=== PATIENT | male | born 1930 | race Caucasian/White ===

== ENCOUNTER 2017-09-09 17:26 | Emergency (ER) | payer MEDICARE ==
[~2017-09-09] VITALS: Ht 167.6 cm; Wt 68.0 kg
[~2017-09-09 17:26] MED LIST: AMIO200; ASCO500; ASPI81EC; ASPI81EC PO; ATEN25; ATEN25 PO; ATOR10; BETAINE HCL; CEFU250; CHOL10002 PO; CIPR500 PO; COQ; COQ 10; DOCU100; FISH1000 PO; HYOS.125 SL; IBUP400 PO; IRON; IRON 325 MG; LATA.005SO; LEVSOD75; LEVSOD75 PO; LOVA20 PO; METO25 PO; METO50ER; MULTI ENZYME; MULVIT; MULVITMIND PO; OMEP20ER PO; OMEP40CA12 PO; PAPAYA ENZYME; PRED10; PROM25S; TYLENOL; UBID10 PO; VISION ESSENTIALS; [UNRECOGNIZED DRUG - CODE]; [UNRECOGNIZED DRUG - OTHER]
[2017-09-09 17:51] LABS: BASOPHILS ABSOLUTE AUTO 0.04 K/mm3 (0.00-0.23); BASOPHILS PERCENT AUTO 0 % (0-2); EOSINOPHILS ABSOLUTE AUTO 0.07 K/mm3 (0.00-0.68); EOSINOPHILS PERCENT AUTO 0 % (0-6); Hematocrit 44.9 % (37.0-53.0); Hemoglobin 14.6 g/dL (13.5-17.5); IMMATURE GRAN ABSOLUTE AUTO 0.06 K/mm3 (0.00-0.10); IMMATURE GRAN PERCENT AUTO 0 % (0-1); LYMPHOCYTES ABSOLUTE AUTO 0.57 K/mm3 (0.84-5.20); LYMPHOCYTES PERCENT AUTO 4 % (21-46); MONOCYTES PERCENT AUTO 9 % (4-13); Mean Corpuscular HGB 33.1 pg (26.0-34.0); Mean Corpuscular HGB Conc 32.5 g/dL (31.5-36.5); Mean Corpuscular Volume 102 fL (80-100); Mean Platelet Volume 9.7 fL (9.1-12.4); NEUTROPHILS ABSOLUTE AUTO 13.84 K/mm3 (1.96-9.15); NEUTROPHILS PERCENT AUTO 86 % (41-73); Platelet Count 176 K/mm3 (150-400); RDW Coefficient Variation 13.1 % (11.7-14.2); RDW Standard Deviation 49.8 fL (35.1-46.3); Red Blood Cell Count 4.41 M/mm3 (4.30-5.90); White Blood Cell Count 16.08 K/mm3 (4.00-11.30)
[2017-09-09 18:05] LABS: Albumin, Blood 3.8 g/dL (3.4-5.0); Albumin/Globulin Ratio 1.1 (0.8-1.8); Bilirubin, Total 0.9 mg/dL (0.1-1.0); Bun/Creatinine Ratio 21.8 (12.0-20.0); Calcium, Blood 9.3 mg/dL (8.5-10.1); Creatinine, Blood 1.97 mg/dL (0.60-1.20); Globulin, Blood 3.6 g/dL (2.2-4.0); Potassium, Blood 5.3 mmol/L (3.5-5.5); Total Protein, Blood 7.4 g/dL (6.4-8.2)
[2017-09-09 18:15] LABS: Calcium, Ionized (POC) 1.16 mmol/L (1.10-1.46); Chloride (POC) 106 mmol/L (98-108); Glucose (ISTAT POC) 129 mg/dL (70-99); Hemoglobin (POC) 14.6 g/dL (13.5-17.5); Potassium (POC) 5.2 mmol/L (3.5-5.5); Sodium (POC) 141 mmol/L (135-148); Total CO2 (POC) 24 mmol/L (21-32)
[2017-09-09] MEDS ORDERED: ASPI81CH (19:40)
[2017-09-09] MEDS ORDERED: ALLO100 (19:40)
[2017-09-09] MEDS ORDERED: Curcumin1 GM (19:57)
[2017-09-09] MEDS ORDERED: BLUEBERRY FLAVOR1 ML (19:58)
[2017-09-09] MEDS ORDERED: Flax Oil1000 MG (19:58)
[2017-09-09] MEDS ORDERED: Tart Cherry Ca1 EACH (19:58)
[2017-09-09] MEDS ORDERED: BILBERRY80 MG (19:59)
[2017-09-09] MEDS ORDERED: PROBIOTIC1 EAC3 (19:59)
[2017-09-09] MEDS ORDERED: B Complex #11 EACH (19:59)
[2017-09-09] MEDS ORDERED: CYAN500 (19:59)
[2017-09-09] MEDS ORDERED: CHOL10002 (19:59)
[2017-09-09] MEDS ORDERED: RESVERATROL1 GM (19:59)
[2017-09-09 20:09] LABS: Source, Urine Clean Catch
[2017-09-09 20:10] LABS: Calcium, Ionized (POC) 1.15 mmol/L (1.10-1.46); Chloride (POC) 106 mmol/L (98-108); Creatinine (POC) 1.9 mg/dL (0.8-1.3); Glucose (ISTAT POC) 113 mg/dL (70-99); Hemoglobin (POC) 13.3 g/dL (13.5-17.5); Potassium (POC) 5.4 mmol/L (3.5-5.5); Sodium (POC) 141 mmol/L (135-148); Total CO2 (POC) 26 mmol/L (21-32)
[2017-09-09 20:12] LABS: Bilirubin, Urine Neg (Neg); Blood, Urine 1+ (Neg); Glucose Qualitative, Urine Neg (Neg); Ketones, Urine 1+ (Neg); Leukocyte Esterase, Urine 1+ (Neg); Nitrite, Urine Neg (Neg); Protein, Urine 2+ (Neg); Urobilinogen, Urine 1+ (Normal)
[2017-09-09] MEDS ORDERED: Zofran Odt4 MG PO (20:12)
[2017-09-09 20:17] LABS: Appearance, Urine Cloudy (Clear); Color, Urine Yellow (P-Yellow)
[2017-09-09 20:19] LABS: Amorphous Light (0-Heavy); Bacteria Few /hpf; Squamous Epithelial Cells Not Seen /hpf (Few)
== END 2017-09-10 20:28 | disposition home or self-care (01) ==
LOC: ER 17:26
PROVIDERS: Emergency Medicine
DX: K52.9 Noninfective gastroenteritis and colitis, unspecified (principal); E03.9 Hypothyroidism, unspecified; K21.9 Gastro-esophageal reflux disease without esophagitis; Z88.0 Allergy status to penicillin; Z88.8 Allergy status to other drugs, medicaments and biological substances; Z79.899 Other long term (current) drug therapy
CPT/HCPCS: 51701; 80047; 80053; 81001; 83690; 85014; 85025; 87086; 96361; 96374; 99283; J2405

== ENCOUNTER 2017-10-25 22:22 | Inpatient (IN) | payer MEDICARE ==
[~2017-10-25] VITALS: Ht 165.1 cm; Wt 72.9 kg
[~2017-10-25 22:22] MED LIST changes: +ALLO100 PO; +ASPI81CH PO; +B Complex #11 EACH; +BILBERRY80 MG; +BLUEBERRY FLAVOR1 ML; -COQ 10; +COQ 10 PO; +CYAN500 PO; +Curcumin1 GM; +Flax Oil1000 MG PO; +PROBIOTIC1 EAC3 PO; +RESVERATROL1 GM; +Tart Cherry Ca1 EACH PO; +Zofran Odt4 MG PO
[2017-10-25 23:14] LABS: BASOPHILS ABSOLUTE AUTO 0.05 K/mm3 (0.00-0.23); BASOPHILS PERCENT AUTO 1 % (0-2); EOSINOPHILS ABSOLUTE AUTO 0.27 K/mm3 (0.00-0.68); EOSINOPHILS PERCENT AUTO 4 % (0-6); Hematocrit 38.4 % (37.0-53.0); Hemoglobin 12.7 g/dL (13.5-17.5); IMMATURE GRAN ABSOLUTE AUTO 0.03 K/mm3 (0.00-0.10); IMMATURE GRAN PERCENT AUTO 0 % (0-1); LYMPHOCYTES ABSOLUTE AUTO 2.01 K/mm3 (0.84-5.20); LYMPHOCYTES PERCENT AUTO 29 % (21-46); MONOCYTES ABSOLUTE AUTO 1.04 K/mm3 (0.16-1.47); MONOCYTES PERCENT AUTO 15 % (4-13); Mean Corpuscular HGB 33.4 pg (26.0-34.0); Mean Corpuscular HGB Conc 33.1 g/dL (31.5-36.5); Mean Corpuscular Volume 101 fL (80-100); Mean Platelet Volume 9.6 fL (9.1-12.4); NEUTROPHILS PERCENT AUTO 51 % (41-73); Platelet Count 170 K/mm3 (150-400); RDW Coefficient Variation 12.9 % (11.7-14.2); RDW Standard Deviation 47.9 fL (35.1-46.3)
[2017-10-25 23:36] LABS: Alanine Aminotransfer (ALT/SGP 24 U/L (12-78); Albumin, Blood 3.2 g/dL (3.4-5.0); Albumin/Globulin Ratio 0.9 (0.8-1.8); Alk Phos 66 U/L (50-136); Anion Gap 8 mmol/L (6-16); Aspartate Aminotrans (AST/SGOT 23 U/L (12-37); Bilirubin, Total 0.4 mg/dL (0.1-1.0); Blood Urea Nitrogen 32 mg/dL (8-24); Bun/Creatinine Ratio 20.9 (12.0-20.0); CO2, Blood 27 mmol/L (21-32); Chloride, Blood 107 mmol/L (98-108); Creatinine, Blood 1.53 mg/dL (0.60-1.20); Globulin, Blood 3.7 g/dL (2.2-4.0); Glomerular Filtration Rate 46 (60-); Glucose, Blood 93 mg/dL (70-99); Potassium, Blood 4.3 mmol/L (3.5-5.5); Sodium, Blood 142 mmol/L (136-145); Total Protein, Blood 6.9 g/dL (6.4-8.2); Troponin I <0.015 ng/mL (0.000-0.040)
[2017-10-25 23:48] LABS: Magnesium, Blood 2.4 mg/dL (1.6-2.4)
[2017-10-26 00:34] LABS: Free Thyroxine 1.08 ng/dL (0.70-1.60)
[2017-10-26 00:35] LABS: D-Dimer, Quantitative 0.67 mg/L FEU (0.00-0.52)
[2017-10-26] MEDS ORDERED: LOVA40 PO (08:46)
[2017-10-27 05:04] LABS: Bun/Creatinine Ratio 22.6 (12.0-20.0); Calcium, Blood 8.3 mg/dL (8.5-10.1); Creatinine, Blood 1.46 mg/dL (0.60-1.20); Potassium, Blood 4.6 mmol/L (3.5-5.5)
[2017-10-28 05:47] LABS: Calcium, Blood 8.5 mg/dL (8.5-10.1); Creatinine, Blood 1.46 mg/dL (0.60-1.20); Potassium, Blood 4.2 mmol/L (3.5-5.5)
[2017-10-30] MEDS ORDERED: METO25ER PO (11:42)
[2017-10-30] MEDS ORDERED: TORSE20 PO (11:43)
[2017-10-30] MEDS ORDERED: XARELTO15 MG PO (11:43)
== END 2017-10-30 12:20 | disposition home or self-care (01) | DRG 310 ==
LOC: ER 22:22 → ERHOLD 22:23 → MEDS 22:23 → ICUW 10-26 07:02 → MEDS 10-26 08:05 → ICUW 10-28 13:21
PROVIDERS: Emergency Medicine; Student in an Organized Health Care Education/Training Program
PROC: B24BZZ4 Ultrasonography of Heart with Aorta, Transesophageal (ICD-10-PCS; 2017-10-27)
PROC: 5A2204Z Restoration of Cardiac Rhythm, Single (ICD-10-PCS; principal; 2017-10-29)
DX: I48.92 Unspecified atrial flutter (principal); I45.2 Bifascicular block; I25.10 Atherosclerotic heart disease of native coronary artery without angina pectoris; Z95.1 Presence of aortocoronary bypass graft; E78.5 Hyperlipidemia, unspecified; E03.9 Hypothyroidism, unspecified; H40.9 Unspecified glaucoma; Z87.891 Personal history of nicotine dependence; Z79.82 Long term (current) use of aspirin; Z79.899 Other long term (current) drug therapy; I95.89 Other hypotension; I34.0 Nonrheumatic mitral (valve) insufficiency; I48.0 Paroxysmal atrial fibrillation; N18.3 Chronic kidney disease, stage 3 (moderate); I44.0 Atrioventricular block, first degree
CPT/HCPCS: 36415; 71046; 71275; 80048; 80053; 83735; 83880; 84439; 84443; 84481; 84484; 85025; 85379; 92960; 93005; 93010; 93306; 93312; 93325; 96361; 96372; 96374; 96376; 99285; G0378; J1650; J2250; J2310; J3010; J7030; Q9967

== ENCOUNTER 2018-05-09 02:39 | Observation (INO) | payer MEDICARE ==
[~2018-05-09] VITALS: Ht 165.1 cm; Wt 68.0 kg
[~2018-05-09 02:39] MED LIST changes: +ELIQUIS2.5 MG PO; +HYDHCL25 PO; +KRILL OIL500 MG PO; +LORATADINE PO; +LOVA40 PO; +MAGOXI400 PO; +METO25ER PO; +OMEGA 3 500 SO1 EACH PO; +TORSE20 PO; +TRIA15CR3 TOP; +UBID100 PO; +VITAMIN A PO; +VITAMIN B-6 PO; +VITAMIN E PO; +XARELTO15 MG PO
[2018-05-10 04:28] LABS: Calcium, Blood 8.3 mg/dL (8.5-10.1); Creatinine, Blood 1.69 mg/dL (0.60-1.20); Potassium, Blood 4.5 mmol/L (3.5-5.5)
== END 2018-05-10 09:55 | disposition home or self-care (01) ==
LOC: MHTC 02:39 → PCU 09:06 → MHTC 09:06 → PCU 11:00
PROVIDERS: Student in an Organized Health Care Education/Training Program
DX: I48.4 Atypical atrial flutter (principal); I49.5 Sick sinus syndrome; I44.30 Unspecified atrioventricular block; I25.10 Atherosclerotic heart disease of native coronary artery without angina pectoris; M10.9 Gout, unspecified; Z79.82 Long term (current) use of aspirin; Z79.899 Other long term (current) drug therapy; Z95.1 Presence of aortocoronary bypass graft; Z87.11 Personal history of peptic ulcer disease; Z88.0 Allergy status to penicillin; Z88.4 Allergy status to anesthetic agent; Z88.8 Allergy status to other drugs, medicaments and biological substances; Z87.891 Personal history of nicotine dependence
CPT/HCPCS: 36415; 80048; 92960; 99152; J0461; J1265; J1644; J1940; J2250; J2310; J2765; J3010; J3370; J7030